=== PATIENT | female | born 1995 | race Caucasian/White ===

== ENCOUNTER → 2018-04-28 | Outpatient (CLI) | payer OTHER ==
[~2018-04-28] MED LIST: CIPR250 PO; CRUTCH3 USE; IBUP800 PO; Keflex500 MG PO; OXYACE5T PO; PRENATAL 19 TA1 EACH PO; nuva ring
== END | disposition home or self-care (01) ==
LOC: LAB SHORT 18:25 → LAB EV 18:25
DX: H00.033 Abscess of eyelid right eye, unspecified eyelid (principal)
CPT/HCPCS: 87070; 87077; 87147; 87186; 87205

== ENCOUNTER 2020-12-18 20:49 | Emergency (ER) | payer OTHER ==
[~2020-12-18] VITALS: Ht 154.9 cm; Wt 68.0 kg
[~2020-12-18 20:49] MED LIST changes: +OMEP20ER PO
== END 2020-12-18 22:00 | disposition home or self-care (01) ==
LOC: ER 20:49
DX: R50.9 Fever, unspecified (principal)
CPT/HCPCS: 99284

== ENCOUNTER 2020-12-21 04:45 | Emergency (ER) | payer OTHER ==
[~2020-12-21] VITALS: Ht 154.9 cm; Wt 68.0 kg
[2020-12-21 05:27] LABS: BASOPHILS ABSOLUTE AUTO 0.04 K/mm3 (0.00-0.23); BASOPHILS PERCENT AUTO 0 % (0-2); EOSINOPHILS ABSOLUTE AUTO 0.07 K/mm3 (0.00-0.68); EOSINOPHILS PERCENT AUTO 1 % (0-6); Hematocrit 33.8 % (33.0-51.0); Hemoglobin 11.1 g/dL (11.5-16.0); IMMATURE GRAN ABSOLUTE AUTO 0.05 K/mm3 (0.00-0.10); IMMATURE GRAN PERCENT AUTO 1 % (0-1); LYMPHOCYTES ABSOLUTE AUTO 1.11 K/mm3 (0.84-5.20); LYMPHOCYTES PERCENT AUTO 11 % (21-46); MONOCYTES ABSOLUTE AUTO 0.91 K/mm3 (0.16-1.47); MONOCYTES PERCENT AUTO 9 % (4-13); Mean Corpuscular HGB 29.8 pg (26.0-34.0); Mean Corpuscular HGB Conc 32.8 g/dL (31.5-36.5); Mean Corpuscular Volume 91 fL (80-100); Mean Platelet Volume 9.7 fL (9.1-12.4); NEUTROPHILS ABSOLUTE AUTO 8.35 K/mm3 (1.96-9.15); NEUTROPHILS PERCENT AUTO 79 % (41-73); Platelet Count 253 K/mm3 (150-400); RDW Coefficient Variation 13.6 % (11.7-14.2); Red Blood Cell Count 3.72 M/mm3 (3.80-5.20); White Blood Cell Count 10.53 K/mm3 (4.00-11.30)
[2020-12-21 05:46] LABS: Alanine Aminotransfer (ALT/SGP 51 U/L (12-78); Albumin, Blood 3.1 g/dL (3.4-5.0); Albumin/Globulin Ratio 0.7 (0.8-1.8); Alk Phos 120 U/L (50-136); Anion Gap 9 mmol/L (6-16); Aspartate Aminotrans (AST/SGOT 35 U/L (12-37); Bilirubin, Total 0.5 mg/dL (0.1-1.0); Blood Urea Nitrogen 14 mg/dL (8-24); Bun/Creatinine Ratio 18.4 (12.0-20.0); CO2, Blood 23 mmol/L (21-32); Calcium, Blood 8.4 mg/dL (8.5-10.1); Chloride, Blood 105 mmol/L (98-108); Creatinine, Blood 0.76 mg/dL (0.40-1.00); Globulin, Blood 4.5 g/dL (2.2-4.0); Glomerular Filtration Rate >60 (60-); Glucose, Blood 129 mg/dL (70-99); Magnesium, Blood 2.3 mg/dL (1.6-2.4); Potassium, Blood 3.4 mmol/L (3.5-5.5); Sodium, Blood 137 mmol/L (136-145); Total Protein, Blood 7.6 g/dL (6.4-8.2)
[2020-12-21] MEDS ORDERED: ONDA4ODT MM (06:31)
[2020-12-21 06:51] LABS: Source, Urine Clean Catch
[2020-12-21 07:02] LABS: Appearance, Urine Hazy (Clear); Bilirubin, Urine Neg (Neg); Blood, Urine 5+ (Neg); Color, Urine Yellow (P-Yellow); Glucose Qualitative, Urine Neg (Neg); Ketones, Urine Neg (Neg); Leukocyte Esterase, Urine 2+ (Neg); Nitrite, Urine Neg (Neg); Protein, Urine 2+ (Neg); Urobilinogen, Urine NORM (Normal)
[2020-12-21 07:19] LABS: Red Blood Cells, Urine 50-100 /hpf (0-2)
[2020-12-21 07:20] LABS: Bacteria Mod /hpf; Mucus Light (0-Heavy); Squamous Epithelial Cells Few /hpf (Few)
[2020-12-21 07:21] LABS: White Blood Cells, Urine 25-50 /hpf (0-5)
[2020-12-21 07:22] LABS: Amorphous Light (0-Heavy)
[2020-12-21] MEDS ORDERED: CEPH500 PO (07:39)
== END 2020-12-21 08:31 | disposition home or self-care (01) ==
LOC: ER 04:45
PROVIDERS: Emergency Medicine
DX: N39.0 Urinary tract infection, site not specified (principal)
CPT/HCPCS: 71046; 80053; 81001; 81025; 83690; 83735; 84145; 85025; 87077; 87086; 87186; 96361; 96374; 99284-25; J2405; J7030

== ENCOUNTER 2021-01-26 | Emergency (ER) | payer OTHER ==
[~2021-01-26] VITALS: Ht 154.9 cm; Wt 72.6 kg
[~2021-01-26] MED LIST changes: +CEPH500 PO; +ONDA4ODT MM
== END 2021-01-26 05:43 | disposition home or self-care (01) ==
LOC: ER
DX: H20.00 Unspecified acute and subacute iridocyclitis (principal); F17.200 Nicotine dependence, unspecified, uncomplicated; Z88.8 Allergy status to other drugs, medicaments and biological substances
CPT/HCPCS: 99283; A9270

== ENCOUNTER → 2021-03-25 | Outpatient (CLI) | payer OTHER | END | disposition home or self-care (01) | LOC: LAB SHORT 12:01 | DX: L08.9 Local infection of the skin and subcutaneous tissue, unspecified (principal) | CPT/HCPCS: 87070; 87075; 87077; 87147; 87186; 87205 ==

== ENCOUNTER 2023-01-30 17:36 | Emergency (ER) | payer OTHER ==
[~2023-01-30] VITALS: Ht 154.9 cm; Wt 68.0 kg
[2023-01-30 19:40] LABS: BASOPHILS ABSOLUTE AUTO 0.08 K/mm3 (0.00-0.23); BASOPHILS PERCENT AUTO 1 % (0-2); EOSINOPHILS ABSOLUTE AUTO 0.12 K/mm3 (0.00-0.68); EOSINOPHILS PERCENT AUTO 1 % (0-6); Hematocrit 33.8 % (33.0-51.0); Hemoglobin 10.8 g/dL (11.5-16.0); IMMATURE GRAN ABSOLUTE AUTO 0.02 K/mm3 (0.00-0.10); IMMATURE GRAN PERCENT AUTO 0 % (0-1); LYMPHOCYTES ABSOLUTE AUTO 1.64 K/mm3 (0.84-5.20); LYMPHOCYTES PERCENT AUTO 18 % (21-46); MONOCYTES ABSOLUTE AUTO 0.65 K/mm3 (0.16-1.47); MONOCYTES PERCENT AUTO 7 % (4-13); Mean Corpuscular HGB 27.6 pg (26.0-34.0); Mean Corpuscular Volume 86 fL (80-100); Mean Platelet Volume 9.6 fL (9.1-12.4); NEUTROPHILS PERCENT AUTO 72 % (41-73); Platelet Count 325 K/mm3 (150-400); RDW Coefficient Variation 14.8 % (11.7-14.2); RDW Standard Deviation 47.1 fL (35.1-46.3); Red Blood Cell Count 3.92 M/mm3 (3.80-5.20); White Blood Cell Count 9.01 K/mm3 (4.00-11.30)
[2023-01-30 19:59] LABS: Alanine Aminotransfer (ALT/SGP 24 U/L (12-78); Albumin, Blood 3.5 g/dL (3.4-5.0); Alk Phos 72 U/L (50-136); Anion Gap 5 mmol/L (6-16); Aspartate Aminotrans (AST/SGOT 23 U/L (12-37); Bilirubin, Total 0.4 mg/dL (0.1-1.0); Blood Urea Nitrogen 16 mg/dL (8-24); Bun/Creatinine Ratio 18.4 (12.0-20.0); CO2, Blood 28 mmol/L (21-32); Calcium, Blood 8.5 mg/dL (8.5-10.1); Chloride, Blood 108 mmol/L (98-108); Creatinine, Blood 0.87 mg/dL (0.40-1.00); Globulin, Blood 3.6 g/dL (2.2-4.0); Glomerular Filtration Rate 92 (60-); Glucose, Blood 107 mg/dL (70-99); Potassium, Blood 3.7 mmol/L (3.5-5.5); Sodium, Blood 141 mmol/L (136-145); Total Protein, Blood 7.1 g/dL (6.4-8.2)
[2023-01-30 20:18] LABS: Beta HCG, Quantitative, Serum <1 mIU/mL (0-3); Lactate Dehydrogenase (Ld),Bld 335 U/L (100-240)
[2023-01-30 21:42] LABS: Source, Urine Clean Catch
[2023-01-30 21:49] LABS: Appearance, Urine Clear (Clear); Bilirubin, Urine Neg (Neg); Blood, Urine 1+ (Neg); Color, Urine Yellow (P-Yellow); Glucose Qualitative, Urine Neg (Neg); Ketones, Urine Neg (Neg); Leukocyte Esterase, Urine Neg (Neg); Nitrite, Urine Neg (Neg); Protein, Urine 1+ (Neg); Specific Gravity, Urine 1.025 (1.003-1.022); Urobilinogen, Urine NORM (Normal)
[2023-01-30 22:07] LABS: White Blood Cells, Urine 0-2 /hpf (0-5)
[2023-01-30 22:08] LABS: Bacteria Few /hpf; Squamous Epithelial Cells Few /hpf (Few)
[2023-01-30 22:09] LABS: Mucus Heavy (0-Heavy)
[2023-01-30 22:45] VITALS: BP 146/107
[2023-01-30] MEDS ORDERED: SULTRIDS PO (23:09)
[2023-01-30] MEDS ORDERED: CEPH500 PO (23:09)
[2023-02-01] MEDS ORDERED: SULTRIDS PO (11:30)
[2023-02-01] MEDS ORDERED: CEPH500 PO (11:30)
== END 2023-01-30 23:25 | disposition home or self-care (01) ==
LOC: ER 17:36
PROVIDERS: Physician Assistant
DX: L03.116 Cellulitis of left lower limb (principal); M25.571 Pain in right ankle and joints of right foot; F17.200 Nicotine dependence, unspecified, uncomplicated; Z88.8 Allergy status to other drugs, medicaments and biological substances
CPT/HCPCS: 20605; 36415; 73610; 80053; 81001; 83605; 83615; 84702; 85025; 85651; 86141; 87040; 96365-59; 99283-25; J0696

== ENCOUNTER 2024-08-16 19:41 | Emergency (ER) | payer OTHER ==
[~2024-08-16] VITALS: Ht 154.9 cm; Wt 72.6 kg
[~2024-08-16 19:41] MED LIST changes: +SULTRIDS PO
[2024-08-16 19:47] VITALS: BP 134/95
[2024-08-16 20:33] LABS: CORONAVIRUS COVID-19 AG Negative (NEGATIVE); INFLUENZA A AG Negative (NEGATIVE); INFLUENZA B AG Negative (NEGATIVE)
== END 2024-08-16 21:07 | disposition left against medical advice (07) ==
LOC: ER 19:41
PROVIDERS: Student in an Organized Health Care Education/Training Program
DX: G43.909 Migraine, unspecified, not intractable, without status migrainosus (principal); J06.9 Acute upper respiratory infection, unspecified; F17.210 Nicotine dependence, cigarettes, uncomplicated; Z53.29 Procedure and treatment not carried out because of patient's decision for other reasons; Z88.8 Allergy status to other drugs, medicaments and biological substances
CPT/HCPCS: 87428-QW; 99283